=== PATIENT | male | born 1980 | race African-American/Black ===

== ENCOUNTER 2016-06-21 04:01 | Emergency (ER) | payer SELFPAY ==
[2016-06-21 04:53] LABS: Hematocrit 43 % (42-52); Hemoglobin 14.2 g/dl (14.0-18.0); Mean Corpuscular HGB Conc 33 g/dl (31-36); Mean Corpuscular Hemoglobin 30 pg (27-31); Mean Corpuscular Volume 90 fL (80-94); Mean Platelet Volume 10 um3 (7.4-10.4); Red Blood Count 4.72 10^6/ul (4.0-5.4); Red Cell Distribution Width 13 % (10.5-15); White Blood Count 11.4 10^3/ul (3.5-10.8)
[2016-06-21 04:57] LABS: Add Diff/Slide Review? Slide Review Added; Comments Flag Yes
[2016-06-21 05:02] LABS: ALT 42 U/L (7-52); Albumin 4.7 g/dL (3.2-5.2); Alkaline Phosphatase 80 U/L (34-104); BUN/Creatinine Ratio 12.8 (8-20); Blood Urea Nitrogen 14 mg/dL (6-24); CO2 Carbon Dioxide 25 mmol/L (22-32); Calcium 9.3 mg/dL (8.6-10.3); Chloride 101 mmol/L (101-111); EGFR African American 99.6 (>60); EGFR Non-African American 77.4 (>60); Globulin 3.5 g/dL (2-4); Glucose 118 mg/dL (70-100); Sodium 133 mmol/L (133-145); Total Protein 8.2 g/dL (6.4-8.9)
--- NOTE | 2016-06-21 05:37 | ED ---
Valentino Vela Claudia, scribed for Eliud Gonzales MD on 06/21/16 at 0408 . HPI Chest Pain - HPI Summary HPI Summary: 35 year old male presents to the ED with CP. Pt states he has been having episodic bouts of CP for the past 4 months pt notes the last episode before tonight was earlier this week. He describes the left anterior CP as a tightness that radiates to his left arm. Pt states that he "did not feel like himself" this evening, thereby bringing him to the ED. He notes that he has seen s physician for these Sx once in the past. SHx of Heavy Daily Tobacco use, Daily alcohol consumption and Marijuana usage is noted. - History of Current Complaint Hx Obtained From: Patient Onset/Duration: Started Hours Ago, Still Present Timing: Intermittent Pain Scale Used: 0-10 Numeric Chest Pain Location: Left Anterior Chest Pain Radiates: Yes Chest Pain Radiates To:: Arm Character: Tightness Aggravating Factor(s): Nothing Alleviating Factor(s): Nothing Associated Signs and Symptoms: Positive: Chest Pain. Negative: Fever, Chills - Allergy/Home Medications Allergies/Adverse Reactions: Allergies Allergy/AdvReac Type Severity Reaction Status Date / Time No Known Allergies Allergy Verified 11/21/14 18:56 PMH/Surg Hx/FS Hx/Imm Hx Previously Healthy: Yes Endocrine/Hematology History: Denies: Hx Diabetes Cardiovascular History: Denies: Hx Hypertension Psychiatric History: Reports: Hx Schizophrenia - Family History Known Family History: Positive: Hypertension - Social History Occupation: Unemployed Lives: Alone Alcohol Use: Daily Substance Use Type: Reports: Marijuana Smoking Status (MU): Heavy Every Day Tobacco Smoker Review of Systems Negative: Fever, Chills Eyes: Negative ENT: Negative Positive: Chest Pain Respiratory: Negative Gastrointestinal: Negative Genitourinary: Negative Musculoskeletal: Negative Skin: Negative Neurological: Negative Psychological: Normal All Other Systems Reviewed And Are Negative: Yes Physical Exam Triage Information Reviewed: Yes Vital Signs On Initial Exam: Initial Vitals BP 145/85 06/21/16 04:12 Vital Signs Reviewed: Yes Appearance: Positive: No Pain Distress, Thin Skin: Positive: Warm Eyes: Positive: ILEANA ENT: Positive: Hearing grossly normal Neck: Positive: Supple Respiratory/Lung Sounds: Positive: Clear to Auscultation, Breath Sounds Present Cardiovascular: Positive: Normal, RRR Abdomen Description: Positive: Nontender, No Organomegaly, Soft Bowel Sounds: Positive: Present Musculoskeletal: Positive: Strength/ROM Intact Neurological: Positive: Sensory/Motor Intact, Alert, Oriented to Person Place, Time, Normal Gait Psychiatric: Positive: Normal Diagnostics - Vital Signs Vital Signs Temp Pulse Resp BP Pulse Ox 06/21/16 05:00 92 18 99 06/21/16 04:17 98.3 F 112 18 145/85 98 06/21/16 04:14 129 23 100 06/21/16 04:12 145/85 - Laboratory Lab Results: Lab Results 06/21/16 06/21/16 Range/Units 04:30 04:30 WBC 11.4 H (3.5-10.8) 10^3/ul RBC 4.72 (4.0-5.4) 10^6/ul Hgb 14.2 (14.0-18.0) g/dl Hct 43 (42-52) % MCV 90 (80-94) fL MCH 30 (27-31) pg MCHC 33 (31-36) g/dl RDW 13 (10.5-15) % Plt Count 187 (150-450) 10^3/ul MPV 10 (7.4-10.4) um3 Neut % (Auto) 78.7 (38-83) % Lymph % (Auto) 17.3 L (25-47) % [place] % (Auto) 2.5 (1-9) % Eos % (Auto) 0.1 (0-6) % Baso % (Auto) 1.4 (0-2) % Absolute Neuts (auto) 9.0 H (1.5-7.7) 10^3/ul Absolute Lymphs (auto) 2.0 (1.0-4.8) 10^3/ul Absolute Monos (auto) 0.3 (0-0.8) 10^3/ul Absolute Eos (auto) 0 (0-0.6) 10^3/ul Absolute Basos (auto) 0.2 (0-0.2) 10^3/ul Absolute Nucleated RBC 0 10^3/ul Nucleated RBC % 0 Sodium 133 (133-145) mmol/L Potassium TNP Chloride 101 (101-111) mmol/L Carbon Dioxide 25 (22-32) mmol/L Anion Gap TNP BUN 14 (6-24) mg/dL Creatinine 1.09 (0.67-1.17) mg/dL Est GFR ( Amer) 99.6 (>60) Est GFR (Non-Af Amer) 77.4 (>60) BUN/Creatinine Ratio 12.8 (8-20) Glucose 118 H (70-100) mg/dL Calcium 9.3 (8.6-10.3) mg/dL Total Bilirubin 0.40 (0.2-1.0) mg/dL AST TNP ALT 42 (7-52) U/L Alkaline Phosphatase 80 (34-104) U/L Total Protein 8.2 (6.4-8.9) g/dL Albumin 4.7 (3.2-5.2) g/dL Globulin 3.5 (2-4) g/dL Albumin/Globulin Ratio 1.3 (1-3) Pertinent Lab Values Are: WNL Result Diagrams: 06/21/16 04:30 06/21/16 05:36 Lab Statement: Any lab studies that have been ordered have been reviewed, and results considered in the medical decision making process. - EKG 4:09 Cardiac Rate: NL EKG Rhythm: Sinus Tachycardia - 117 beats/min Re-Evaluation - Re-Evaluation First Eval Re-Evaluation Time: 06:03 - results d/w pt Change: Improved Chest Pain Course/Dx - Diagnoses Provider Diagnoses: Chest pain Discharge - Discharge Plan Condition: Improved Disposition: HOME Patient Education Materials: Chest Pain (ED) The documentation as recorded by the Valentino mcdaniel Claudia accurately reflects the service I personally performed and the decisions made by , Eliud Gonzales MD.
[2016-06-21 06:37] VITALS: BP 120/72
--- NOTE | 2016-06-21 07:32 | RAD ---
INDICATION: Chest pain. COMPARISON: Comparison is made with a prior study from November 21, 2014. TECHNIQUE: Dual-energy PA and lateral views of the chest were obtained. FINDINGS: The heart is within normal limits in size. Mediastinal and hilar contours appear within normal limits. The lungs are clear. No pleural effusion is present. IMPRESSION: NO EVIDENCE FOR ACTIVE CARDIOPULMONARY DISEASE.
== END 2016-06-21 06:38 | disposition home or self-care (01) ==
LOC: ED 04:01
DX: R07.9 Chest pain, unspecified (principal)
CPT/HCPCS: 36415; 71020; 80053; 84484; 85025; 93005; 99283

== ENCOUNTER 2018-05-11 12:59 | Emergency (ER) | payer OTHER ==
[2018-05-11 13:15] VITALS: BP 116/78
--- NOTE | 2018-05-11 13:32 | UC ---
Back Pain HPI - HPI Summary HPI Summary: 37 year old male presents with 4 day history of mid back pain. Describes as constant ache. Worsens with movement. Has tried OTC ibuprofen and heating pad without relief. Denies injury, fever, chills, chest pain, palpitations, shortness of breath, abdominal pain, nausea, vomiting, flank pain, dysuria, frequency, urgency, hematuria, extremity weakness, numbness, or tingling, or loss of bowel or bladder control. - History of Current Complaint Chief Complaint: UCBackPain Stated Complaint: BACK PAIN Time Seen by Provider: 05/11/18 13:23 Hx Obtained From: Patient Onset/Duration: Gradual Onset, Lasting Days Timing: Constant Severity Currently: Moderate Pain Intensity: 8 Character: Aching Aggravating Factor(s): Movement Alleviating Factor(s): Nothing Associated Signs And Symptoms: Negative: Fever, Weakness, Numbness, Tingling, Abdominal Pain, Flank Pain, Bladder Incontinence, Bowel Incontinence - Allergies/Home Medications Allergies/Adverse Reactions: Allergies Allergy/AdvReac Type Severity Reaction Status Date / Time No Known Allergies Allergy Verified 05/11/18 13:15 PMH/Surg Hx/FS Hx/Imm Hx Previously Healthy: Yes - Denies significant PMH - Surgical History Surgical History: None Surgery Procedure, Year, and Place: denies - Family History Known Family History: Positive: Hypertension - Social History Occupation: Employed Full-time Lives: With Family Alcohol Use: Weekly Substance Use Type: None Smoking Status (MU): Heavy Every Day Tobacco Smoker Review of Systems All Other Systems Reviewed And Are Negative: Yes Constitutional: Negative: Fever, Chills Skin: Negative: Rash Respiratory: Negative: Shortness Of Breath, Cough Cardiovascular: Negative: Palpitations, Chest Pain Gastrointestinal: Negative: Abdominal Pain, Vomiting, Diarrhea, Nausea Genitourinary: Negative: Dysuria, Hematuria, Frequency, Urgency Motor: Negative: Weakness Neurovascular: Negative: Decreased Sensation Musculoskeletal: Positive: Other: - See HPI Neurological: Negative: Headache, Weakness, Paresthesia, Numbness Is Patient Immunocompromised?: No Physical Exam - Summary Physical Exam Summary: GENERAL APPEARANCE: Well developed, well nourished, alert and cooperative, and appears to be in no acute distress. NECK: Neck supple, non-tender without lymphadenopathy. CARDIAC: Normal S1 and S2. No S3, S4 or murmurs. Rhythm is regular. There is no peripheral edema, cyanosis or pallor. Extremities are warm and well perfused. Capillary refill is less than 2 seconds. LUNGS: Clear to auscultation and percussion without rales, rhonchi, wheezing or diminished breath sounds. ABDOMEN: Positive bowel sounds. Soft, nondistended, nontender. No guarding or rebound. No masses or hepatosplenomegally. MUSKULOSKELETAL: ROM intact to all extremities. No joint erythema or tenderness. Normal muscular development. Normal gait. BACK: Examination of the spine reveals normal gait and posture. No spinal deformity or tenderness. Bilateral thoracic soft tissue tenderness with spasm noted. EXTREMITIES: No significant deformity or joint abnormality. No edema. Peripheral pulses intact. NEUROLOGICAL: Strength and sensation symmetric and intact throughout. Reflexes 2 + throughout. SKIN: Skin normal color, texture and turgor with no lesions or eruptions. Vital Signs: Initial Vital Signs Temp 98.5 F 05/11/18 13:11 Pulse 84 05/11/18 13:11 Resp 18 05/11/18 13:11 BP 116/78 05/11/18 13:11 Pulse Ox 100 05/11/18 13:11 Back Pain Course/Dx - Course Course Of Treatment: 37 year old male presents with 4 day history of mid back pain. Describes as constant ache. Worsens with movement. Has tried OTC ibuprofen and heating pad without relief. Denies injury, fever, chills, chest pain, palpitations, shortness of breath, abdominal pain, nausea, vomiting, flank pain, dysuria, frequency, urgency, hematuria, extremity weakness, numbness , or tingling, or loss of bowel or bladder control. Exam unremarkable except for some soft tissue tenderness and spasm of the thoracic back consistent with muscluskeletal back pain. Recommend conservative treatment with NSAIDs, Muscle relaxant, heat, and back exercises. He is to follow up with PCP in 7 days if symptoms persist. Warning symptoms reviewed. Verbalizes understanding and agrees with POC. - Differential Dx/Diagnosis Provider Diagnosis: Acute back pain Discharge - Sign-Out/Discharge Documenting (check all that apply): Patient Departure All imaging exams completed and their final reports reviewed: No Studies - Discharge Plan Condition: Stable Disposition: HOME Prescriptions: Cyclobenzaprine HCl 10 mg PO Q8HR PRN #15 tablet PRN Reason: Severe Pain Naproxen [Naproxen 500 mg tab] 500 mg PO Q12HR #30 tablet Patient Education Materials: Back Pain (ED), Lower Back Exercises (ED) Referrals: No Primary Care Phys,NOPCP [Primary Care Provider] - [facility] [place] [facility] [Outside] Additional Instructions: Your history and exam are consistent with a back pain of musculoskeletal origin. You should stay as active as possible to avoid allowing the back muscles to become weak which will worsen your condition. Avoid heavy lifting (more than 10 lbs) while having pain or any activities that cause pain. Take naproxen 1 tab every 12 hours with food for next 7 days. After 7 days you may take every 12 hours as needed for pain. Take cyclobenzaprine (Flexeril) 1 tab every 8 hours as needed for severe pain or spasm. This will cause drowsiness so do not take and drive or operate machinery. Avoid alcohol while taking. Apply warm moist heat to the affected area for 15-20 minutes 3-4 times a day. Use the back exercises provided to you. Start slow and increase exercise as tolerated. Follow up with your primary care provider in 7 days if symptoms persist. I have provided you with the number to the [facility]erral service if you need assistance with scheduling with a primary care provider. Seek immediate medical attention in the emergency room if you develop fever greater than 100.5 F, have worsening pain despite pain medication, develop numbness, tingling, or weakness in your extremities, lose control of your bowel or bladder, or have any worsening of symptoms. - Billing Disposition and Condition Condition: STABLE Disposition: Home
== END 2018-05-11 14:00 | disposition home or self-care (01) ==
LOC: UCEAST 12:59
DX: M54.9 Dorsalgia, unspecified (principal); F17.210 Nicotine dependence, cigarettes, uncomplicated
CPT/HCPCS: 99212; G0463